=== PATIENT | male | born 1965 ===

== ENCOUNTER 2017-11-26 13:00 | Outpatient (RCR) | payer OTHER | END 2017-11-27 | LOC: PT 13:00 | PROVIDERS: ATTEND Neurological Surgery | DX: M50.120 Mid-cervical disc disorder, unspecified level (principal) ==

== ENCOUNTER 2017-12-23 13:00 | Outpatient (RCR) | payer OTHER | END 2017-12-27 | LOC: PT 13:00 | PROVIDERS: ATTEND Neurological Surgery | DX: M50.120 Mid-cervical disc disorder, unspecified level (principal) | CPT/HCPCS: 97139 ==